=== PATIENT | female | born 1945 | race Caucasian/White ===

== ENCOUNTER 2021-04-05 16:01 | Outpatient (CLI) | payer OTHER | END 2021-04-05 20:37 | disposition home or self-care (01) | LOC: SRD 16:01 | PROVIDERS: ATTEND Internal Medicine | DX: Z01.818 Encounter for other preprocedural examination (principal); K80.80 Other cholelithiasis without obstruction; I70.0 Atherosclerosis of aorta; M81.0 Age-related osteoporosis without current pathological fracture; M47.814 Spondylosis without myelopathy or radiculopathy, thoracic region | CPT/HCPCS: 71046-TC ==